=== PATIENT | female | born 1945 | race Caucasian/White ===

== ENCOUNTER 2016-10-16 16:00 | Outpatient (RCR) | payer OTHER | END 2016-10-31 | disposition home or self-care (01) | LOC: PTY 16:00 | PROVIDERS: ATTEND Internal Medicine | DX: S92.352D Displaced fracture of fifth metatarsal bone, left foot, subsequent encounter for fracture with routine healing (principal); I10 Essential (primary) hypertension | CPT/HCPCS: 97110; 97140; 97162; G0283 ==

== ENCOUNTER 2016-11-01 15:15 | Outpatient (RCR) | payer OTHER | END 2016-12-01 | disposition home or self-care (01) | LOC: PTY 15:15 | PROVIDERS: ATTEND Internal Medicine | DX: S92.352D Displaced fracture of fifth metatarsal bone, left foot, subsequent encounter for fracture with routine healing (principal); I10 Essential (primary) hypertension; X58.XXXD Exposure to other specified factors, subsequent encounter; M19.90 Unspecified osteoarthritis, unspecified site | CPT/HCPCS: 97110; 97140; G0283 ==

== ENCOUNTER 2017-05-02 12:52 | Outpatient (RCR) | payer OTHER | END 2017-05-03 | disposition home or self-care (01) | LOC: PTY 12:52 | PROVIDERS: ATTEND Internal Medicine | DX: M54.31 Sciatica, right side (principal) | CPT/HCPCS: 97035; 97110; 97162; G0283 ==

== ENCOUNTER 2017-05-28 13:00 | Outpatient (RCR) | payer OTHER | END 2017-06-02 | disposition home or self-care (01) | LOC: PTY 13:00 | PROVIDERS: ATTEND Internal Medicine | DX: M54.31 Sciatica, right side (principal) | CPT/HCPCS: 97035; 97110; G0283 ==

== ENCOUNTER 2017-06-04 13:13 | Outpatient (RCR) | payer OTHER | END 2017-07-03 | disposition home or self-care (01) | LOC: PTY 13:13 | PROVIDERS: ATTEND Internal Medicine | DX: M54.31 Sciatica, right side (principal) | CPT/HCPCS: 97035; 97110; G0283 ==